=== PATIENT | female | born 1985 | race Caucasian/White ===

== ENCOUNTER 2022-04-14 12:15 | Observation (INO) | payer BC, SELFPAY ==
[2022-04-14] VITALS (9 sets, daily range): BP systolic 103–133; BP diastolic 59–88; PULSE 56–69; RESP 14–58; TEMP 36.3–37.1; O2SAT 96–100; BMI 27.5; BMI 29.0
--- NOTE | 2022-04-14 12:50 | ED_ITS ---
HPI - Back Pain/Injury General Chief Complaint: Back Injury/Pain Stated Complaint: Back pain Time Seen by Provider: 04/14/22 12:20 History of Present Illness HPI Narrative: This 36-year-old female comes in reporting sudden onset of severe low back pain radiating into her upper legs. This occurred just prior to arrival when she was just reaching forward a bit to clean a bed room for Ensure item. She has had some occasions of back discomfort in the past but nothing of this intensity. She came in by ambulance who gave 75 mcg of fentanyl intranasally and 2 mg of Versed intramuscularly. This brought some relief to her symptoms. 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 She has been doing well since then. Related Data Home Medications Medication Instructions Recorded Confirmed No Known Home Medications 04/14/22 04/14/22 Allergies Allergy/AdvReac Type Severity Reaction Status Date / Time morphine Allergy Verified 04/14/22 12:33 Review of Systems Status of ROS: Reports: 10 or more systems reviewed and unremarkable except as noted in History and below Narrative: Constitutional: No fevers, no weight gain or loss. Eyes: No discharge. No vision changes. HENT: No congestion, no sore throat, no ear pain. Cardiovascular: No chest pain, no palpitations. Respiratory: No shortness of breath, no wheezes, no cough. Gastrointestinal: No abdominal pain, no vomiting, no diarrhea. Genitourinary: No dysuria, no hematuria. Musculoskeletal: Low back pain with associated decreased range of motion. Skin: No rashes, no pruritis. Neurological: No dizziness, weakness, sensory change, speech change. Endo/Heme/Allergies: No bruising or bleeding. No polydipsia. Pysch: no suicidality, no anxiety, no insomnia. All other systems reviewed and are negative. PFSH PFS Social History Smoking Status: Unknown if ever smoked Second hand tobacco smoke exposure: No service: No Exam Narrative: Exam Narrative: Constitutional: Well-developed, well-nourished, no acute distress. HEENT: Normocephalic, atraumatic. Neck: Normal range of motion. Nontender. Supple. Heart: Regular. No murmurs. Normal rate. Intact distal pulses. Lungs: Clear to auscultation. No chest discomfort. No wheezes, rhonchi, or rales. Abdomen: Normal bowel sounds. Nontender. No rebound tenderness. Genitalia: Deferred. Back: Pain localized in the low back and radiating down into the upper legs bilaterally. Passive straight leg raise of the left leg is negative. The right leg is positive for passive straight leg raise at about 45? elevation. Extremities: Normal range of motion. No injury. Skin: Intact. No rash. Warm. No erythema or pallor. Neurologic: No altered sensation. No weakness. Alert and oriented. Psychiatric: No suicidality. No anxiety or depression. No insomnia. Nursing notes and vitals signs are reviewed. Const: Vital Signs, click to edit/add: Vital Signs - 24 hr 04/14/22 12:27 04/14/22 13:30 04/14/22 14:30 Temperature 97.3 F L Pulse Rate [Left R adial] 66 61 Respiratory Rate 16 14 14 Blood Pressure [Le ft Upper Arm] 121/88 118/85 133/84 Pulse Oximetry 99 98 100 04/14/22 15:30 04/14/22 16:30 Temperature Pulse Rate [Left R adial] 59 L 69 Respiratory Rate 14 58 H Blood Pressure [Le ft Upper Arm] 131/88 122/81 Pulse Oximetry 100 97 Course Vital Signs Vital signs: Initial Vital Signs Temperature 97.3 F L 04/14/22 12:27 Temperature Source Temporal Artery Scan 04/14/22 12:27 Pulse Rhythm 04/14/22 12:27 Respiratory Rate 16 04/14/22 12:27 Blood Pressure 121/88 04/14/22 12:27 Blood Pressure Mean 99 04/14/22 12:27 Blood Pressure Position Supine 04/14/22 12:27 Pulse Oximetry 99 04/14/22 12:27 Oxygen Delivery Method 04/14/22 12:27 Vital Signs Temperature 97.3 F L 04/14/22 12:27 Respiratory Rate 16 04/14/22 12:27 Blood Pressure 121/88 04/14/22 12:27 Pulse Oximetry 99 04/14/22 12:27 Temperature 97.3 F L 04/14/22 12:27 Pulse Rate 69 04/14/22 16:30 Respiratory Rate 58 H 04/14/22 16:30 Blood Pressure 122/81 04/14/22 16:30 Pulse Oximetry 97 04/14/22 16:30 MDM - Back Pain/Injury MDM Narrative Medical decision making narrative: This patient comes in with severe low back pain from a rather sudden onset of circumstances that were not from a significant mechanism of injury. There is no need for imaging studies at this time. The patient did receive medications prior to arrival which brought some relief to her symptoms. She received morphine 10 mg intramuscularly here. If the patient remains still this brought sufficient relief but yet she still had some episodes of spasms with intense pain. Every time she moved in any kind of movement she also was crying out in pain. She did receive an oral dose of Valium 5 mg which brought some relief to her symptoms it seems. Later she received a half a mg of Ativan and Solu-Medrol 125 mg intravenously. She had such intense symptoms of pain and it became very clear that she was not going to be able to get up and ambulate. An MRI of the lumbar spine is ordered which does show some findings of pathology but not obvious nerve impingement. There are some findings at L5-S1 that may explain her symptoms. I spoke with the hospitalist monotype keyboard operator, Dr. Castillo, who agrees to bring her in the hospital for further treatment so that she can hopefully get up and manage her daily activities. Imaging Data mr lumbar: Radiologist's impression: 1. Normal alignment. No acute osseous abnormality. 2. At L4-5, discogenic degenerative changes results in mild indentation of the ventral thecal sac without significant spinal canal stenosis. Mild neural foramen narrowing bilaterally. 3. At L5-S1, central disc protrusion contacts the bilateral S1 nerve sheaths without leni impingement. Mild left neural foramen narrowing. 4. There is a small focus of T2 prolongation in the central spinal cord at the T12-L1 level that may represent ventriculus terminalis. Discharge Plan Discharge Clinical Impression: Lumbar radiculopathy Patient Disposition: Admitted As Inpatient Condition: Unchanged Prescriptions: No Action No Known Home Medications 0RF Follow Up/Referrals: Provider,Not a Local [Primary Care Provider] -
[2022-04-14] MEDS: MORPHINE 10 MG/ML inj IM (12:59)
[2022-04-14] MEDS: diphenhydrAMINE 25 MG CAPSULE PO (12:59)
[2022-04-14] MEDS: diazePAM 5 MG TABLET PO (13:59)
--- NOTE | 2022-04-14 15:32 | CRLHL7_ITS ---
For Patients: As a result of the Century Cures Act, medical imaging exams and procedure reports are released immediately into your electronic medical record. You may view this report before your referring provider. If you have questions, please contact your health care provider. Indication: Severe radiating low back pain. Technique: Noncontrast sagittal and axial T1, T2, and sagittal STIR sequences are provided. Comparison: No prior studies available for comparison at this institution. Findings: Lumbar lordosis is preserved. Vertebral body heights are maintained. No fractures. No prevertebral or paraspinal edema. Disc dehydration at L4-5 and L5-S1. The conus medullaris is normal in location. Modic type 1 degenerative changes on the right side at L4-5. There is a small focus of T2 prolongation in the central spinal cord at the T12-L1 level that may represent ventriculus terminalis. No intradural pathology. Benign intraosseous hemangioma in the L1 vertebral body. T12-L1: No significant spinal canal stenosis or neural foramen narrowing. L1-2: No significant spinal canal stenosis or neural foramen narrowing. L2-3: No significant spinal canal stenosis or neural foramen narrowing. L3-4: No significant spinal canal stenosis or neural foramen narrowing. L4-5: Modic type 1 degenerative changes on the right side. Disc dehydration, circumferential disc bulge broad-based disc protrusion and small left foramen disc protrusion. Mild indentation of ventral thecal sac without significant spinal canal stenosis. Mild neural from narrowing bilaterally. L5-S1: Disc dehydration. Mild disc bulge and superimposed central protrusion containing an annular fissure contacts the bilateral S1 nerve sheaths without leni impingement. Mild left neural foramen narrowing. No right neural foramen narrowing. Impression : 1. Normal alignment. No acute osseous abnormality. 2. At L4-5, discogenic degenerative changes results in mild indentation of the ventral thecal sac without significant spinal canal stenosis. Mild neural foramen narrowing bilaterally. 3. At L5-S1, central disc protrusion contacts the bilateral S1 nerve sheaths without leni impingement. Mild left neural foramen narrowing. 4. There is a small focus of T2 prolongation in the central spinal cord at the T12-L1 level that may represent ventriculus terminalis. Dictated by Fam Galan MD @ 04/14/2022 5:38:14 PM (Electronically Signed)
--- NOTE | 2022-04-14 16:23 | PC.NURSE ---
pt in MRI
[2022-04-14] MEDS: LORazepam 2 MG/ML inj 0.5 MG IV (17:48)
--- NOTE | 2022-04-14 18:16 | PC.NURSE ---
household appliances salesperson aware of admit
[2022-04-14 18:21] LABS: Appearance Urine Clear (Clear); Bilirubin Urine Negative (Negative); Blood Urine Negative (Negative); Glucose Urine Negative (Negative); Ketones Urine Negative (Negative); Leukocyte Esterase Urine Negative (Negative); Nitrite Urine Negative (Negative); Protein Urine Negative (Negative); Urobilinogen Urine 0.2 (0.2-1.0); pH Urine 7.5 (5.0-8.5)
[2022-04-14 18:23] LABS: Color Urine Yellow (Yellow)
[2022-04-14] MEDS: METHYLPREDNISOLONE SOD SUCC 62.5 MG/ML (125) 125 MG IVP (18:48)
--- NOTE | 2022-04-14 19:14 | W.PC.EDHO ---
Primary Language: Preferred Language: Orientation Status: [x] Alert & Oriented [] Slight Confusion [] Known Dx Dementia Transfers By: [] Assist of 1 [] Assist of 2 [x] Lift Active Medications Discontinued Medications Generic Name Dose Route Start Last Admin Trade Name Juan Antonio PRN Reason Stop Dose Admin Diazepam 5 mg 04/14/22 13:51 04/14/22 13:59 Diazepam 5 Mg Tablet PO 04/14/22 13:52 5 mg ONCE ONE Administration Diphenhydramine HCl 25 mg 04/14/22 12:48 04/14/22 12:59 Diphenhydramine 25 Mg Capsule PO 04/14/22 12:49 25 mg ONCE ONE Administration Lorazepam 0.5 mg 04/14/22 17:42 04/14/22 17:48 Lorazepam 2 Mg/Ml Inj IV 04/14/22 17:43 0.5 mg ONCE ONE Administration Methylprednisolone Sodium Succinate 125 mg 04/14/22 18:08 04/14/22 18:48 Methylprednisolone Sod Succ 62.5 Mg/Ml (125) IVP 04/14/22 18:09 125 mg ONCE ONE Administration Morphine Sulfate 10 mg 04/14/22 12:47 04/14/22 12:59 Morphine 10 Mg/Ml Inj IM 04/14/22 12:48 10 mg ONCE ONE Administration Description of Symptoms ED Triage Present Problem patient was bending over wiping a table and felt a Description tightening in the lower back. collapsed to the floor having spasm for about an hour. EMS given fent 75mcg and versed 2 mg nasal with relief of some pain. ED Triage Date of Onset of 04/14/22 Symptoms Female History Patient No Pain Pain Description [Lower Back] Spasm Pain Description [Lower Back] Spasm Pain Intensity [Lower Back] 8 Pain Intensity [Lower Back] 7 Pain Intensity 6 Pain Intensity 8 Pain Intensity 6 Pain Intensity 8 Pain Intensity 8 Pain Intensity 8 Pain Intensity 8 Pain Scale Used [Lower Back] Numeric (1 - 10) Pain Scale Used [Lower Back] Numeric (1 - 10) Pain Scale Used Numeric (1 - 10) Pain Scale Used Numeric (1 - 10) Pain Scale Used Numeric (1 - 10) Pain Scale Used Numeric (1 - 10) Pain Scale Used Numeric (1 - 10) Pain Scale Used Numeric (1 - 10) Pain Scale Used Numeric (1 - 10) Oxygen Administration Pulse Oximetry 97 Pulse Oximetry 100 Pulse Oximetry 100 Pulse Oximetry 98 Pulse Oximetry 99 Oxygen Delivery Method Room Air Oxygen Delivery Method Nasal Cannula Oxygen Delivery Method Nasal Cannula Oxygen Delivery Method Room Air Oxygen Delivery Method Room Air Oxygen Flow Rate 2 Oxygen Flow Rate 2
--- NOTE | 2022-04-14 19:15 | W.PC.EDHO ---
Primary Language: Preferred Language: Orientation Status: [] Alert & Oriented [] Slight Confusion [] Known Dx Dementia Transfers By: [] Assist of 1 [] Assist of 2 [] Lift Active Medications Discontinued Medications Generic Name Dose Route Start Last Admin Trade Name Juan Antonio PRN Reason Stop Dose Admin Diazepam 5 mg 04/14/22 13:51 04/14/22 13:59 Diazepam 5 Mg Tablet PO 04/14/22 13:52 5 mg ONCE ONE Administration Diphenhydramine HCl 25 mg 04/14/22 12:48 04/14/22 12:59 Diphenhydramine 25 Mg Capsule PO 04/14/22 12:49 25 mg ONCE ONE Administration Lorazepam 0.5 mg 04/14/22 17:42 04/14/22 17:48 Lorazepam 2 Mg/Ml Inj IV 04/14/22 17:43 0.5 mg ONCE ONE Administration Methylprednisolone Sodium Succinate 125 mg 04/14/22 18:08 04/14/22 18:48 Methylprednisolone Sod Succ 62.5 Mg/Ml (125) IVP 04/14/22 18:09 125 mg ONCE ONE Administration Morphine Sulfate 10 mg 04/14/22 12:47 04/14/22 12:59 Morphine 10 Mg/Ml Inj IM 04/14/22 12:48 10 mg ONCE ONE Administration Description of Symptoms ED Triage Present Problem patient was bending over wiping a table and felt a Description tightening in the lower back. collapsed to the floor having spasm for about an hour. EMS given fent 75mcg and versed 2 mg nasal with relief of some pain. ED Triage Date of Onset of 04/14/22 Symptoms Female History Patient No Pain Pain Description [Lower Back] Spasm Pain Description [Lower Back] Spasm Pain Intensity [Lower Back] 8 Pain Intensity [Lower Back] 7 Pain Intensity 6 Pain Intensity 8 Pain Intensity 6 Pain Intensity 8 Pain Intensity 8 Pain Intensity 8 Pain Intensity 8 Pain Scale Used [Lower Back] Numeric (1 - 10) Pain Scale Used [Lower Back] Numeric (1 - 10) Pain Scale Used Numeric (1 - 10) Pain Scale Used Numeric (1 - 10) Pain Scale Used Numeric (1 - 10) Pain Scale Used Numeric (1 - 10) Pain Scale Used Numeric (1 - 10) Pain Scale Used Numeric (1 - 10) Pain Scale Used Numeric (1 - 10) Oxygen Administration Pulse Oximetry 97 Pulse Oximetry 100 Pulse Oximetry 100 Pulse Oximetry 98 Pulse Oximetry 99 Oxygen Delivery Method Room Air Oxygen Delivery Method Nasal Cannula Oxygen Delivery Method Nasal Cannula Oxygen Delivery Method Room Air Oxygen Delivery Method Room Air Oxygen Flow Rate 2 Oxygen Flow Rate 2
[2022-04-14 19:21] LABS: RBC Urine 0-2 (0-2); WBC Urine 0-2 (0-5)
--- NOTE | 2022-04-14 19:24 | P.IMHP_ITS ---
Hospitalist- H&P: HPI History of Present Illness Time Seen by Provider: 19:00 Date Seen: 04/14/22 Chief complaint: Back pain Narrative: Rebeca Thomas is a 36 year old woman who was in her usual state of health until earlier today. While at work she was reaching forward to clean a table and suddenly her low back started to spasm and hurt to the point where she can not even stand. With the help of other she attempted to get up was on and able to do so. EMS was summoned. EMS administered 75 mcg of fentanyl intranasally and 2 mg of midazolam intramuscularly. She had a modicum of relief. Was able to get up briefly but unable to sustain that. EMS brought her into the emergency department for further assessment. In the emergency department she continues to have the discomfort. They have tried oral diazepam, IV lorazepam, IV hydromorphone, IM morphine, without relief of symptoms. And MR scan of the lumbar sacral spine is obtained. No acute osseous abnormalities noted. Normal alignment. At L5-S1, there is central disc protrusion that contacts the bilateral S1 nerve sheaths without leni impingement. There is mild left neural foraminal narrowing at this level. At the L4-5 level, discogenic degenerative changes results in mild indentation of the ventral thecal sac without significant spinal canal stenosis. Mild neural foraminal narrowing bilaterally at this level. Patient is not able to stand with attempts of the emergency department staff. She has a positive straight leg raising that is worse when she lowers her leg as opposed to raising her leg. Decision is made to admit the patient to the hospital for observation and continue with efforts to achieve pain control, spasm management, and obtain physical therapy and occupational therapy consultation in the morning. Additionally will obtain labs to assess for possible secondary causes. Review of Systems Status of ROS: Reports: 10 or more systems reviewed and unremarkable except as noted in History and below Narrative: Generally healthy. Does have intermittent tension headaches for which she takes ibuprofen or Excedrin as needed. She is noted in in tensification of her tension headaches over the recent past. States she ordinarily gets adequate sleep. Does not use any street or recreational drugs. Does not use tobacco products. Tells me she drinks roughly 1 beer per day. Denies binge drinking of alcohol. Denies heat or cold intolerance. Denies weight gain or weight loss. Denies fevers, rigors, diaphoresis. No recent infection. No recent travel. No recent trauma or injury. Bowel and bladder function are satisfactory. Denies angina or anginal equivalent. Denies syncope or near-syncope. Denies dyspnea or cough. Denies nausea or vomiting or palpitations. Denies myalgias or arthralgias. No blood loss. [facility] Medical History Arnold-Chiari malformation, type II 3 para 3 Syrinx of spinal cord Tension headache, chronic Thyroid nodule Surgical History Status post vaginal hysterectomy Social History Smoking Status: Unknown if ever smoked Second hand tobacco smoke exposure: No service: No Meds Home Medications and Allergies Home Medications Medication Instructions Recorded Confirmed Type No Known Home Medications 04/14/22 04/14/22 History Home Medication Comments: [id number] ibuprofen 200 mg tabs, 3-4 tabs 2 times to 3 times per day at the onset of her headaches, but does not use it concurrently with Excedrin migraine. [id number]-[id number] Excedrin migraine, 2 tabs 1 time per day at the onset of headaches, but does not use it concurrently with ibuprofen. Denies use of any other fndl-jln-sczxeti remedies or nutritional supplements. Allergies Allergy/AdvReac Type Severity Reaction Status Date / Time morphine Allergy Verified 04/14/22 12:33 Exam Narrative: Exam Narrative: I examined patient after she has been treated with analgesics and antispasmodic medications. Appears comfortable when laying still. Appears uncomfortable when she moves. Awake, alert, oriented to self, place, time, situation. Somewhat anxious. Articulate. Cooperative. Friendly. Mood and affect are congruent. Hearing is preserved. No conjunctival injection or icterus. Pupils equally round react to light and accommodation. Extraocular muscles are intact. Oropharynx benign. Midline nasal septum. Neck supple. Lungs clear to auscultation. Heart tones with regular rhythm, normal S1-S2, without murmur, gallop, or rub. Abdomen with active bowel sounds, soft, nontender. Extremities without edema. Moves all 4 extremities. No focal motor neurologic deficits. No tremor or asterixis. Skin is warm, dry, intact. I do not repeat the straight leg raising that had been done previously by the emergency department physician. I am not able to reproduce pain or discomfort on palpation of her spine or paraspinal muscles or other back muscles in the low back region. Const: Vital Signs, click to edit/add: Vital Signs - 24 hr 04/14/22 12:27 04/14/22 13:30 04/14/22 14:30 Temperature 97.3 F L Pulse Rate [Left R adial] 66 61 Respiratory Rate 16 14 14 Blood Pressure [Le ft Upper Arm] 121/88 118/85 133/84 Pulse Oximetry 99 98 100 04/14/22 15:30 04/14/22 16:30 04/14/22 19:22 Temperature Pulse Rate [Left R adial] 59 L 69 56 L Respiratory Rate 14 58 H 14 Blood Pressure [Le ft Upper Arm] 131/88 122/81 108/69 Pulse Oximetry 100 97 98 Documenting provider has reviewed patient's vital signs: yes Hospitalist - H&P: Result Labs Labs: Urine 04/14/22 Range/Units 18:08 Urine Color Yellow (Yellow) Urine Appearance Clear (Clear) Urine pH 7.5 (5.0-8.5) Ur Specific [place] 1.020 (1.000-1.030) Urine Protein Negative (Negative) Urine Glucose (UA) Negative (Negative) Assessment and Plan Assessment and plan (1) Acute low back pain: Status: Acute Assessment and Plan: Unable to be discharged from the emergency department due to her inability to move due to her pain. Admit to observation in the hospital. PO and IV analgesics. PO and IV nonsteroidal anti-inflammatory medication. With scheduled NSAID, will initiate prophylactic PPI. PO scheduled and p.r.n. antispasmodic medications. Physical and occupational therapy consultation. Ochoa catheter was placed in the emergency department. Will continue for now. Attempt to remove the morning. Check a CBC, comprehensive metabolic panel, C-reactive protein, TSH to assess for potential secondary causes. Will certainly need follow up with her primary care physician. (2) Muscle spasm of back: Status: Acute (3) Lumbar radiculopathy: Status: Acute (4) Tension headache, chronic: Status: Acute
[2022-04-14 19:28] LABS: SARS PCR* Negative SARS-CoV-2 (Negative)
[2022-04-14] MEDS: HYDROmorphone 0.5 mg/0.5 ml inj IVP (19:33)
[2022-04-14] MEDS: KETOROLAC 30 MG/ML inj IVP (20:31)
[2022-04-14] MEDS: ACETAMINOPHEN 325 MG TABLET 650 MG PO (20:32)
[2022-04-14 22:53] LABS: HCG Qualitative* Negative (Negative)
[2022-04-14 23:15] LABS: Albumin* 4.1 g/dL (3.3-5.0); Chloride* 107 mmol/L (96-114); Potassium* 3.8 mmol/L (3.6-5.1); Sodium* 137 mmol/L (135-149)
[2022-04-14 23:16] LABS: Basophils Absolute Auto 0.02 K/uL (0.00-0.30); Basophils Percent Auto 0.2 % (0.0-3.0); Hematocrit 39.5 % (33.0-51.0); Hemoglobin* 13.9 gm/dL (12.0-16.0); Immature Granulocytes Abs Auto 0.07 K/uL (0.00-0.30); Lymphocytes Percent Auto 6.9 % (20-44); Mean Corpuscular HGB Conc 35 gm/dL (32-36); Mean Corpuscular Hemoglobin 34 pg (26-34); Mean Corpuscular Volume 95 fL (80-100); Monocytes Percent Auto 0.5 % (0.0-11.0); Neutrophils Percent Auto 91.7 % (42.0-72.0); Platelet Count* 231 K/uL (140-440); RDW Coefficient of Variation % 11.5 % (11.5-15.5); Red Blood Count 4.15 m/uL (4.00-5.20); White Blood Count* 9.79 K/uL (4.50-11.00)
[2022-04-14 23:17] LABS: Creatinine* 0.9 mg/dL (0.5-1.5); Est. Creatinine Clearance* 78.51; Estimated Glomerular Filt Rate 86 ml/min
[2022-04-14 23:18] LABS: Alanine Aminotransferase* 16 U/L (4-35); Alkaline Phosphatase* 66 U/L (40-150); Aspartate Amino Transferase* 20 U/L (12-35); Bilirubin Total* 0.5 mg/dL (0.1-1.5); Blood Urea Nitrogen* 15 mg/dL (5-24); Carbon Dioxide* 23 mmol/L (20-32); Glucose* 238 mg/dL (60-115); Total Protein* 6.6 g/dL (6.0-8.3)
[2022-04-14 23:19] LABS: Calcium* 8.9 mg/dL (8.4-10.6); Slide Review Reflex No
[2022-04-14 23:36] LABS: C Reactive Protein* < 0.5 mg/dL (0.5-1.0)
[2022-04-14 23:49] LABS: Thyroid Stimulating Hormone* 0.712 uIU/mL (0.270-4.20)
[2022-04-15 03:00] VITALS: BP 102/53; PULSE 72; RESP 18; TEMP 36.7; O2SAT 97
[2022-04-15] MEDS: HYDROmorphone 0.5 mg/0.5 ml inj IVP (03:27)
[2022-04-15] MEDS: CYCLOBENZAPRINE HCL 10 MG TABLET 5 MG PO ×3 (03:32→16:03)
[2022-04-15 08:00] VITALS: BP 103/63; PULSE 59; RESP 16; TEMP 36.6; O2SAT 99
[2022-04-15] MEDS: hydrOXYzine pamoate 25 MG CAPSULE 50 MG PO ×2 (10:10→16:02)
[2022-04-15] MEDS: HYDROmorphone 2 MG TABLET PO ×3 (10:10→19:58)
[2022-04-15] MEDS: ACETAMINOPHEN 325 MG TABLET 650 MG PO ×2 (10:11→16:55)
[2022-04-15] MEDS: IBUPROFEN 400 MG TABLET 600 MG PO ×2 (10:11→18:52)
--- NOTE | 2022-04-15 10:28 | P.IMPN_ITS ---
Progress Note: A&P Assessment and plan (1) Acute low back pain: Status: Acute Assessment and Plan: Will continue work with PT OT and pain control likely disposition in next 1-2 days. (2) Muscle spasm of back: Status: Acute Assessment and Plan: As above. (3) Lumbar radiculopathy: Status: Acute Assessment and Plan: As above. Subjective Time Seen by Provider: 10:29 Date Seen: 04/15/22 Interval history: Patient is a otherwise healthy 36-year-old woman with severe low back pain with paraspinal spasm. She had MRI done at the time of admission showing some discogenic changes at L4-L5 and L5-S1. Patient is being treated symptomatic lying we having PT and OT today. Patient still unable to ambulate without significant discomfort. Exam Narrative: Exam Narrative: EXAM GENERAL: Patient appears comfortable and well. EYES: No scleral icterus. LYMPH: No supraclavicular or cervical lymphadenopathy. SKIN: Visible skin seen during exam normal or with benign process only. EXT: No dependent lower extremity pedal edema. HEART: Regular rate and rhythm with no murmurs, rubs, or gallops. LUNGS: Clear to auscultation bilaterally with no crackles or wheezes. ABD: Soft, non tender, non distended. PSYCH: Good eye contact, speech is not pressured. Neurologic cranial nerves 2-12 grossly intact no focal defects limited back exam. Const: Vital Signs, click to edit/add: Vital Signs - 24 hr 04/14/22 12:27 04/14/22 13:30 04/14/22 14:30 Temperature 97.3 F L Pulse Rate [Left B rachial] Pulse Rate [Left R adial] 66 61 Respiratory Rate 16 14 14 Blood Pressure [Le ft Radial Artery] Blood Pressure [Le ft Upper Arm] 121/88 118/85 133/84 Pulse Oximetry 99 98 100 04/14/22 15:30 04/14/22 16:30 04/14/22 17:30 Temperature Pulse Rate [Left B rachial] Pulse Rate [Left R adial] 59 L 69 59 L Respiratory Rate 14 58 H 14 Blood Pressure [Le ft Radial Artery] Blood Pressure [Le ft Upper Arm] 131/88 122/81 114/79 Pulse Oximetry 100 97 98 04/14/22 19:22 04/14/22 19:46 04/14/22 23:00 Temperature 98.3 F 98 F Pulse Rate [Left B rachial] 57 L 60 Pulse Rate [Left R adial] 56 L Respiratory Rate 14 18 18 Blood Pressure [Le ft Radial Artery] 118/72 103/59 L Blood Pressure [Le ft Upper Arm] 108/69 Pulse Oximetry 98 96 96 04/15/22 03:00 Temperature 98.1 F Pulse Rate [Left B rachial] 72 Pulse Rate [Left R adial] Respiratory Rate 18 Blood Pressure [Le ft Radial Artery] 102/53 L Blood Pressure [Le ft Upper Arm] Pulse Oximetry 97 Labs Labs: Laboratory Results - last 24 hr 04/14/22 04/14/22 04/14/22 18:08 18:14 22:55 WBC 9.79 RBC 4.15 Hgb 13.9 Hct 39.5 MCV 95 MCH 34 MCHC 35 RDW Coeff of Alex 11.5 Plt Count 231 Neut % (Auto) 91.7 H Lymph % (Auto) 6.9 L [place] % (Auto) 0.5 Eos % (Auto) 0.0 Baso % (Auto) 0.2 Neut # (Auto) 9.00 H Lymph # (Auto) 0.70 L [place] # (Auto) 0.00 Eos # (Auto) 0.00 Baso # (Auto) 0.02 Abs Immat Gran (auto) 0.07 Sodium Potassium Chloride Carbon Dioxide BUN Creatinine Estimated Creat Clear Estimated GFR Glucose Calcium Total Bilirubin AST ALT Alkaline Phosphatase C-Reactive Protein Total Protein Albumin TSH HCG, Qual Negative Urine Color Yellow Urine Appearance Clear Urine pH 7.5 Ur Specific [place] 1.020 Urine Protein Negative Urine Glucose (UA) Negative Urine Ketones Negative Urine Blood Negative Urine Nitrite Negative Urine Bilirubin Negative Urine Urobilinogen 0.2 Ur Leukocyte Esterase Negative Urine RBC 0-2 Urine WBC 0-2 Ur Squamous Epith Cells None Urine Bacteria None SARS-CoV-2 (PCR) Negative SARS-CoV-2 04/14/22 04/14/22 22:55 22:55 WBC RBC Hgb Hct MCV MCH MCHC RDW Coeff of Alex Plt Count Neut % (Auto) Lymph % (Auto) [place] % (Auto) Eos % (Auto) Baso % (Auto) Neut # (Auto) Lymph # (Auto) [place] # (Auto) Eos # (Auto) Baso # (Auto) Abs Immat Gran (auto) Sodium 137 Potassium 3.8 Chloride 107 Carbon Dioxide 23 BUN 15 Creatinine 0.9 Estimated Creat Clear 78.51 Estimated GFR 86 Glucose 238 H Calcium 8.9 Total Bilirubin 0.5 AST 20 ALT 16 Alkaline Phosphatase 66 C-Reactive Protein < 0.5 L Total Protein 6.6 Albumin 4.1 TSH 0.712 HCG, Qual Urine Color Urine Appearance Urine pH Ur Specific [place] Urine Protein Urine Glucose (UA) Urine Ketones Urine Blood Urine Nitrite Urine Bilirubin Urine Urobilinogen Ur Leukocyte Esterase Urine RBC Urine WBC Ur Squamous Epith Cells Urine Bacteria SARS-CoV-2 (PCR)
[2022-04-15] MEDS: predniSONE 20 MG TABLET 40 MG PO (11:24)
[2022-04-15 13:00] VITALS: BP 112/53; PULSE 65; RESP 16; TEMP 36.6; O2SAT 100
[2022-04-15 16:00] VITALS: PULSE 59; RESP 16
--- NOTE | 2022-04-15 16:15 | PC.NURSE ---
Pt eval by Dr. Kenny, PT, OT and myself today. Please see Emar for multiple pain/relaxation meds provided to this patient. Up to recliner with PT, returned to bed with BUSINESS COORDINATOR. Ochoa emptied 300 cc of clear yellow urine. Good appetite. New order for prednisone 40 mg initiated and pt verbalized improvement in her back discomfort. Continue POC, report to Sheryl GILLESPIE for evening shift.
[2022-04-15 16:55] VITALS: TEMP 36.6
[2022-04-15 17:00] VITALS: BP 107/59; PULSE 59; RESP 16; TEMP 36.6; O2SAT 96
--- NOTE | 2022-04-15 19:39 | P.DS_ITS ---
DS: Providers Provider Time Seen by Provider: : Date Seen: 04/15/22 Date of admission: 04/14/22 18:33 Primary care physician: Not a Local Provider Admitting Clinician: Raul Castillo MD Consults: 04/14/22 19:11 Consult to Physical Therapy [CONS] Routine Comment: Reason(s) for PT Consult:: Evaluate and Treat Any Restrictions?:: No Restrictions 04/14/22 19:13 Consult to Occupational Therapy [CONS] Routine Comment: Reason(s) for OT Consult:: Evaluate and Treat Any Restrictions?:: No Restrictions Attending Physician on discharge: Raul Castlilo MD Date of Discharge: 04/15/22 DS: Diagnosis Discharge Diagnosis (1) Acute low back pain: Status: Acute (2) Muscle spasm of back: Status: Acute (3) Lumbar radiculopathy: Status: Acute Problem details: MRI of LS spine 04/14/2022 demonstrated: 1. Normal alignment. No acute osseous abnormality. 2. At L4-5, discogenic degenerative changes results in mild indentation of the ventral thecal sac without significant spinal canal stenosis. Mild neural foramen narrowing bilaterally. 3. At L5-S1, central disc protrusion contacts the bilateral S1 nerve sheaths without leni impingement. Mild left neural foramen narrowing. (4) Hyperglycemia: Status: Acute Problem details: Blood sugar as high as 240 mg/dl in hospital after steroids given to help decrease inflammation. DS: Summary Hospital Course Hospital Course: Rebeca Thomas is a 36 year old woman who was in her usual state of health until earlier today.? While at work she was reaching forward to clean a table and suddenly her low back started to spasm and hurt to the point where she could not even stand.? With the help of others she attempted to get up, but was unable to do so.? EMS was summoned.? EMS administered 75 mcg of fentanyl intranasally and 2 mg of midazolam intramuscularly.? She had a modicum of relief.? Was able to get up briefly but unable to sustain that.? EMS brought her into the emergency department for further assessment. In the emergency department she continued to have the discomfort.? They have tried oral diazepam, IV lorazepam, IV hydromorphone, IM morphine, without relief of symptoms.? And MR scan of the lumbar sacral spine is obtained.? No acute osseous abnormalities noted.? Normal alignment.? At L5-S1, there is central disc protrusion that contacts the bilateral S1 nerve sheaths without leni impingement.? There is mild left neural foraminal narrowing at this level.? At the L4-5 level, discogenic degenerative changes results in mild indentation of the ventral thecal sac without significant spinal canal stenosis.? Mild neural foraminal narrowing bilaterally at this level. Patient is not able to stand with attempts of the emergency department staff.? She has a positive straight leg raising that is worse when she lowers her leg as opposed to raising her leg.? Decision is made to admit the patient to the hospital for observation and continue with efforts to achieve pain control, spasm management, and obtain physical therapy and occupational therapy consultation in the morning.? Additionally will obtain labs to assess for possible secondary causes. We administer methylprednisolone while she is yet in the emergency department. On the 2nd hospital day we switch to oral prednisone 40 mg daily orally. We schedule acetaminophen 650 mg orally 4 times daily. We schedule ibuprofen 600 mg orally 3 times daily. We also started her on prophylactic omeprazole 20 mg daily, while on the steroid and on the nonsteroidal inflammatory medication. Additionally we have cyclobenzaprine p.r.n. for muscle spasms. Also hydroxyzine 50 mg 4 times daily as needed for additional pain management and spasms. Our physical and occupational therapy staff work with her. They gave her various recommendations. By the evening on the 2nd day of her hospitalization she is independently transferring and walking the halls, albeit with antalgia. She has no nausea, vomiting, dyspepsia. She asks to be discharged. We make arrangements as specified. Status at Discharge Functional status at discharge: independent ambulation Overall status at discharge: patient is progressing back to baseline Time Spent with Patient Time attestation: Total time spent providing and/or coordinating discharge services: Time spent: Less than 30 minutes Exam Narrative: Exam Narrative: Independent with transfers, station, and gait. She takes her time with movement. Has antalgic appearance. Alert, oriented to self, place, time, situation. Articulate. Cooperative. Friendly. This morning when she was assessed the following exam was dictated per Dr. Kenny: GENERAL:? Patient appears comfortable and well. EYES:? No scleral icterus. LYMPH:? No supraclavicular or cervical lymphadenopathy. SKIN:? Visible skin seen during exam normal or with benign process only. EXT:? No dependent lower extremity pedal edema. HEART:? Regular rate and rhythm with no murmurs, rubs, or gallops. LUNGS:? Clear to auscultation bilaterally with no crackles or wheezes. ABD:? Soft, non tender, non distended. PSYCH:? Good eye contact, speech is not pressured. Neurologic cranial nerves 2-12 grossly intact no focal defects limited back exam. Const: Vital Signs, click to edit/add: Vital Signs - 24 hr 04/14/22 19:46 04/14/22 23:00 04/15/22 03:00 Temperature 98.3 F 98 F 98.1 F Pulse Rate [Left A pical] Pulse Rate [Left B rachial] 57 L 60 72 Respiratory Rate 18 18 18 Blood Pressure [Le ft Radial Artery] 118/72 103/59 L 102/53 L Pulse Oximetry 96 96 97 04/15/22 08:00 04/15/22 13:00 04/15/22 16:00 Temperature 97.9 F 98 F Pulse Rate [Left A pical] 65 59 L Pulse Rate [Left B rachial] 59 L 59 L Respiratory Rate 16 16 16 Blood Pressure [Le ft Radial Artery] 103/63 112/53 L Pulse Oximetry 99 100 04/15/22 16:55 04/15/22 17:00 Temperature 97.9 F 97.9 F Pulse Rate [Left A pical] 59 L Pulse Rate [Left B rachial] 59 L Respiratory Rate 16 Blood Pressure [Le ft Radial Artery] 107/59 L Pulse Oximetry 96 Documenting provider has reviewed patient's vital signs: yes DS: Data Data Completed and Pending Labs on day of discharge: Labs from last 24 hours 04/14/22 04/14/22 04/14/22 22:55 22:55 22:55 WBC 9.79 RBC 4.15 Hgb 13.9 Hct 39.5 MCV 95 MCH 34 MCHC 35 RDW Coeff of Alex 11.5 Plt Count 231 Neut % (Auto) 91.7 H Lymph % (Auto) 6.9 L [place] % (Auto) 0.5 Eos % (Auto) 0.0 Baso % (Auto) 0.2 Neut # (Auto) 9.00 H Lymph # (Auto) 0.70 L [place] # (Auto) 0.00 Eos # (Auto) 0.00 Baso # (Auto) 0.02 Abs Immat Gran (auto) 0.07 Sodium 137 Potassium 3.8 Chloride 107 Carbon Dioxide 23 BUN 15 Creatinine 0.9 Estimated Creat Clear 78.51 Estimated GFR 86 Glucose 238 H Calcium 8.9 Total Bilirubin 0.5 AST 20 ALT 16 Alkaline Phosphatase 66 C-Reactive Protein < 0.5 L Total Protein 6.6 Albumin 4.1 TSH 0.712 HCG, Qual 04/14/22 18:08 WBC RBC Hgb Hct MCV MCH MCHC RDW Coeff of Alex Plt Count Neut % (Auto) Lymph % (Auto) [place] % (Auto) Eos % (Auto) Baso % (Auto) Neut # (Auto) Lymph # (Auto) [place] # (Auto) Eos # (Auto) Baso # (Auto) Abs Immat Gran (auto) Sodium Potassium Chloride Carbon Dioxide BUN Creatinine Estimated Creat Clear Estimated GFR Glucose Calcium Total Bilirubin AST ALT Alkaline Phosphatase C-Reactive Protein Total Protein Albumin TSH HCG, Qual Negative Imaging MR - Other: Attestation: I have reviewed the pertinent imaging results. Radiologist's impression: MR of lumbosacral spine on 04/14/2022 demonstrated: 1. Normal alignment. No acute osseous abnormality. 2. At L4-5, discogenic degenerative changes results in mild indentation of the ventral thecal sac without significant spinal canal stenosis. Mild neural foramen narrowing bilaterally. 3. At L5-S1, central disc protrusion contacts the bilateral S1 nerve sheaths without leni impingement. Mild left neural foramen narrowing. Discharge Plan Discharge Disposition: Home, Self-Care Date of Admission: 04/14/22 18:33 Attending Provider on Discharge: Raul Castillo Primary Care Provider: Provider,Not a Local Condition: Unchanged Anticipated Discharge Date/Time: 04/15/22 20:00 Discharge Medications: New acetaminophen 325 mg Tablet 650 mg PO QID Qty: 1 0RF Rx Instructions: Over the Counter. No need to dispense. cyclobenzaprine 10 mg Tablet 5 mg PO QID PRN (Reason: Muscle Spasm) 7 Days Qty: 20 1RF prednisone 20 mg Tablet 40 mg PO DAILY 3 Days Qty: 6 0RF hydromorphone 2 mg Tablet 2 mg PO Q6H PRN3 Days Qty: 10 0RF ibuprofen 400 mg Tablet 600 mg PO TIDWM 7 Days Qty: 32 0RF hydroxyzine pamoate 25 mg Capsule 50 mg PO Q4H PRN (Reason: Pain) 7 Days Qty: 20 0RF Continued Excedrin Tension Headache 500-65 mg tablet 2 tab PO DAILY PRN0RF Held ibuprofen 200 mg tablet 600 - 800 mg PO TID 0RF Hold Instructions: May resume in1 week Discharge Orders: Discharge Order (Routine); Ordered 04/15/22 Ordered By: Raul Castillo Patient Education: Acetaminophen (By mouth), Ibuprofen (By mouth), Prednisone (By mouth), Cyclobenzaprine (By mouth), Hydroxyzine (By mouth), Hydromorphone (By mouth), Acute Low Back Pain (GEN), Nondiabetic Hyperglycemia (GEN) Activity Restrictions/Additional Instructions: 1. Follow up with your primary care physician and or group on Wednesday regarding back pain, hyperglycemia, and when to return to work again. 2. May return to work without any restrictions or limitations on Wednesday. Activity Level: Activity as Tolerated Discharge Diet: Regular Follow Up Appointments: Provider,Not a Local [Primary Care Provider] - (Please schedule an follow up appointment with your provider.) Forms: [employer] Info Instructions Discharge Comment: Omeprazole 20 mg daily for next week.
--- NOTE | 2022-04-15 21:36 | PC.NURSE ---
Discharge Note: Pt friendly and cooperative, initially rating pain 7/10. PRN Dilaudid PO given. Ochoa d'cd and pt voiding. Pt able to sit up, stand up, and ambulate independently. She moves slowly but is steady and able to perform ADL's. Walked unit x1 with JANETH and tolerated well. Pt requested discharge and MD in to visit. Pt was discharged to home in the care of her SO at 1999. Pt verbalized understanding of follow up and medications.
== END 2022-04-15 20:00 | disposition home or self-care (01) ==
LOC: ED 18:20 → MEDSURG 18:34
PROVIDERS: Admitting Provider Internal Medicine; Emergency Provider Emergency Medicine Emergency Medical Services; Visit Provider Internal Medicine
DX: M54.50 Low back pain, unspecified (principal); M62.830 Muscle spasm of back; M54.16 Radiculopathy, lumbar region; G44.229 Chronic tension-type headache, not intractable; R73.9 Hyperglycemia, unspecified; Z87.798 Personal history of other (corrected) congenital malformations; Z98.890 Other specified postprocedural states
CPT/HCPCS: 36415; 72148; 80053; 81001; 84443; 84703; 85025; 86140; 87635; 96372; 96374; 96375; 97110; 97140; 97162; 97165; 97530; 99284; 99285; A9270; G0378; G0379; J1170; J1885; J2060; J2270; J2930; J7512